=== PATIENT | female | born 1960 | race Caucasian/White ===

== ENCOUNTER 2016-08-02 19:19 | Emergency (ER) | payer OTHER ==
[2016-08-02 19:38] VITALS: BP 150/96
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
--- OUTSIDE RECORDS SUMMARY | 2016-08-02 20:23 | XMS REPORT | Continuity of Care Document ---
:1960 Author Organization [facility] ([facility]) Address [address] [place] [address] Phone [phone] Care Team Providers Name Role Phone Unavailable Primary Care Provider Unavailable Source Comments This disclosure is being made pursuant to the Care Everywhere program, applicable federal and state laws, and may not contain all informaitonavailable regarding this patient.[facility] ([facility]) Active Allergies and Adverse Reactions Not on File Current Medications Not on file Active Problems Problem Noted Date Lumbago 11/27/2001 Social History Tobacco Use Types Packs/Day Years Used Date Never Assessed Plan of Care Health Maintenance Due Date Last Done Comments HCV Screening 1960 Hepatitis B Vaccine (1 of 3 - Primary Series) 1960 Tdap Vaccine 1970 Lipid Disorder Screening 1977 MMR Vaccine 1977 Td Vaccine 1977 Cervical Cancer Screening 1989 Mammogram 1999 Colonoscopy 06/12/2009 Influenza Vaccine: Seasonal (#1) 12/28/2015 Results from Last 3 Months Not on file
== END 2016-08-02 21:58 | disposition home or self-care (01) ==
LOC: ER 19:19
DX: S80.02XA Contusion of left knee, initial encounter (principal); S80.01XA Contusion of right knee, initial encounter; W18.39XA Other fall on same level, initial encounter; Y92.410 Unspecified street and highway as the place of occurrence of the external cause; S80.211A Abrasion, right knee, initial encounter; E11.9 Type 2 diabetes mellitus without complications

== ENCOUNTER 2017-04-15 15:38 | Emergency (ER) | payer OTHER ==
[2017-04-15 16:00] VITALS: BP 142/87
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
[2017-04-15] MEDS ORDERED: KETOROLAC TROMETHAMINE 30 MG/ML VIAL IV ONE (16:20)
[2017-04-15] MEDS ORDERED: NORMAL SALINE 1,000 ML IV ONE (16:20)
[2017-04-15] MEDS ORDERED: PROMETHAZINE HCL 12.5 MG in DEXTROSE 5 % IN WATER 50 ML IV ONE ×2 (16:20)
[2017-04-15 16:37] LABS: Hematocrit 44.5 % (37.0-47.0); Hemoglobin 15.3 gm/dL (12.5-16.0); Mean Cell Volume 87.1 fl (78-100); Mean Corpuscular Hemoglobin 29.9 pg (27-31); Mean Corpuscular Hgb Conc 34.4 g/dl (32-36); Mean Platelet Volume 10.1 fl (6.0-9.5); Neutrophil # 5.9 K/mm3 (1.3-6.0); Platelet Count 257 K/mm3 (150-450); Red Blood Count 5.11 M/mm3 (4.2-5.4); Red Cell Distribution Width 12.4 % (11.5-14.0); White Blood Count 10.1 K/mm3 (4.0-10.5)
[2017-04-15 16:50] LABS: Urine Appearance Clear; Urine Bilirubin Negative (NEGATIVE); Urine Color Yellow; Urine Ketone Negative (NEGATIVE)
[2017-04-15 16:51] LABS: Albumin * 3.7 gm/dl (3.4-5.0); Anion Gap 19.2 mmol/L (6.8-13.8); BUN/Creatinine Ratio 9.6 (9.0-21.6); Bilirubin, Total 0.5 mg/dL (0.0-1.1); Ca. Corrected For Albumin 9.2 mg/dL (8.4-10.2); Calcium * 9.3 mg/dL (7.9-10.9); Carbon Dioxide 22.6 mmol/L (24-32.6); Potassium 3.8 mmol/L (3.4-4.6); Total Protein 7.3 gm/dL (6.2-8.2)
[2017-04-15 16:52] LABS: Urine Bacteria None Seen; Urine Blood Negative /ul (NEGATIVE); Urine Nitrite Negative (NEGATIVE); Urine Protein Negative (NEGATIVE); Urine RBC None Seen /hpf (0-5); Urine Specific Gravity 1.015 SP.GR. (1.005-1.010); Urine Urobilinogen Normal (NORMAL); Urine WBC 0-5 /hpf (0-5)
[2017-04-15] MEDS ORDERED: KETOROLAC TROMETHAMINE 30 MG/ML VIAL ONE (17:06)
== END 2017-04-15 17:55 | disposition home or self-care (01) ==
LOC: ER 15:38
DX: J06.9 Acute upper respiratory infection, unspecified (principal); R19.7 Diarrhea, unspecified; E11.9 Type 2 diabetes mellitus without complications

== ENCOUNTER 2018-02-08 06:52 | Inpatient (IN) ==
[~2018-02-08 06:52] MED LIST: BUPIVACAINE HCL/EPINEPHRINE 50 ML VIAL IJ PRN; LEVOFLOXACIN IN DEXTROSE 5 % 500 MG/100 ML BAG IV PRN
[2018-02-08] MEDS: RINGER'S SOLUTION,LACTATED 1,000 ML IV PRN ×3 (10:07→16:26)
--- NOTE | 2018-02-08 10:28 | ANES ---
Anesthesia Pre Procedure Eval Vitals/Labs: Last Vital Signs Temp 36.8 C 02/08/18 07:00 Pulse 79 02/08/18 07:00 Resp 17 02/08/18 07:00 BP 150/87 H 02/08/18 07:00 Pulse Ox 98 02/08/18 07:00 HOME MEDICATIONS Albuterol Sulfate [Proventil Hfa] 1 - 2 puff IH Q4H PRN 12/24/14 [Last Taken Unknown] Levetiracetam [Keppra] 750 mg PO BID 12/24/14 [Last Taken Unknown] Calcium Carbonate/Vitamin D3 [Calcium 600 + Vit D3 400 Tab] 1 ea PO TID [Last Taken Unknown] Topiramate [Topamax] 100 mg PO DAILY 01/13/16 [Last Taken Unknown] acetaminophen 325 mg capsule 650 mg PO Q4H PRN cap 12/14/17 [Last Taken Unknown ] dicyclomine 20 mg tablet 20 mg PO QID #120 tab 12/25/17 [Last Taken Unknown] metformin 1,000 mg tablet 1,000 mg PO BID #60 tab 01/17/18 [Last Taken Unknown] trazodone 50 mg tablet 50 mg PO HS PRN #30 tab 01/26/18 [Last Taken Unknown] glipizide 5 mg tablet 10 mg PO BID #60 tab 01/31/18 [Last Taken Unknown] doxepin 10 mg/mL oral concentrate 5 mg PO HS PRN ml 02/07/18 [Last Taken Unknown] Diazepam [Valium] 5 mg PO BID PRN 02/08/18 [Last Taken Unknown] Allergies/Adverse Reactions: Allergies Allergy/AdvReac Type Severity Reaction Status Date / Time latex Allergy Mild Hives Verified 02/08/18 08:58 amoxicillin trihydrate Allergy Unknown Verified 02/08/18 08:58 [From Augmentin] carbamazepine [From Tegretol] Allergy Unknown Verified 02/08/18 08:58 clonazepam [From Klonopin] Allergy Unknown Verified 02/08/18 08:58 codeine Allergy Unknown Verified 02/08/18 08:58 cortisone Allergy Unknown Verified 02/08/18 08:58 egg Allergy Unknown Verified 02/08/18 08:58 erythromycin base Allergy Unknown Verified 02/08/18 08:58 influenza virus vaccine ts Allergy Unknown Verified 02/08/18 08:58 [From Fluarix] lactose Allergy Unknown Verified 02/08/18 08:58 milk Allergy Unknown Verified 02/08/18 08:58 onion Allergy Unknown Verified 02/08/18 08:58 oxybutynin chloride Allergy Unknown Verified 02/08/18 08:58 [From Ditropan] penicillin G Allergy Unknown Verified 02/08/18 08:58 phenazopyridine HCl Allergy Unknown Verified 02/08/18 08:58 [From Pyridium] phenytoin sodium Allergy Unknown Verified 02/08/18 08:58 [From Dilantin] phenytoin sodium extended Allergy Unknown Verified 02/08/18 08:58 [From Dilantin] potassium clavulanate Allergy Unknown Verified 02/08/18 08:58 [From Augmentin] shellfish derived Allergy Unknown Verified 02/08/18 08:58 Sulfa (Sulfonamide Allergy Unknown Verified 02/08/18 08:58 Antibiotics) tiagabine HCl [From Gabitril] Allergy Unknown Verified 02/08/18 08:58 wheat Allergy Unknown Verified 02/08/18 08:58 yeast, dried [yeast] Allergy Unknown Verified 02/08/18 08:58 fluconazole [From Diflucan] AdvReac Mild Other Verified 02/08/18 08:58 ampicillin AdvReac Unknown Verified 02/08/18 08:58 black pepper AdvReac Unknown Verified 02/08/18 08:58 [place] Derivatives AdvReac Unknown Verified 02/08/18 08:58 feathers AdvReac Unknown Verified 02/08/18 08:58 fire ant AdvReac Unknown Verified 02/08/18 08:58 Fish Containing Products AdvReac Unknown Verified 02/08/18 08:58 grass pollen-perennial rye, AdvReac Unknown Verified 02/08/18 08:58 standar hornet venom AdvReac Unknown Verified 02/08/18 08:58 generic medications Allergy Unknown Uncoded 04/15/17 16:01 NUTS Allergy Unknown Uncoded 04/15/17 16:01 VANILLA Allergy Unknown Uncoded 04/15/17 16:01 - Planned Procedure Planned Procedure: Bilateral Mastectomy, Right Sentinal Lymph Node Bx Medication List Reviewed:: Yes Allergies Verified: Yes Medical History (Last Reviewed 02/08/18 @ 08:56 by Fely Mann RN) Bilateral shoulder pain Onset Date: Unknown Breast cancer Onset Date: ~12/2017 Allergic rhinitis Onset Date: 11/04/16 Arthritis Onset Date: Unknown Asthma, intermittent Onset Date: 11/15/17 Back pain Onset Date: Unknown Bilateral knee pain Onset Date: Unknown Bilateral shoulder pain Onset Date: 11/07/14 Bone spur of foot Onset Date: ~2003 Carpal tunnel syndrome Onset Date: Unknown Cerebral palsy Onset Date: Unknown Chronic sinusitis Onset Date: Unknown Diabetes mellitus Onset Date: 11/07/14 Heart murmur Onset Date: Unknown Hyperlipidemia Onset Date: Unknown Hypertension, essential, benign Onset Date: 06/12/15 Irritable bowel syndrome Onset Date: Unknown Knee pain, right Onset Date: Unknown Neck pain Onset Date: Unknown Osteopenia Onset Date: 12/10/15 Seizures Onset Date: 11/07/14 Tennis elbow Onset Date: Unknown Tinea versicolor Onset Date: 02/10/15 Tinnitus Onset Date: 11/04/16 Abdominal pain, vomiting, and diarrhea Onset Date: 11/15/17 Abrasion of face Onset Date: 05/14/15 Bronchitis Onset Date: Unknown Closed fracture nasal bone Onset Date: Unknown Ear itching Onset Date: 02/10/15 Fall Onset Date: Unknown Finger fracture Onset Date: Unknown Fracture of hand Onset Date: ~2007 Ganglion cyst Onset Date: 08/21/15 Head injury Onset Date: 05/14/15 Left wrist pain Onset Date: 05/14/15 Retinal detachment Onset Date: Unknown Right ankle pain Onset Date: 05/14/15 Right hand pain Onset Date: 05/14/15 Surgical History (Last Reviewed 02/08/18 @ 10:27 by Alvin Kingston CRNA) History of arthroplasty of right ankle Onset Date: ~1991 History of carpal tunnel release Onset Date: ~1989 History of cholecystectomy Onset Date: Unknown History of colonoscopy Onset Date: ~2009 History of foot surgery Onset Date: ~1967 History of hysterectomy Onset Date: ~1990 History of knee surgery Onset Date: ~1971 History of tonsillectomy Onset Date: Unknown Status post trigger finger release Onset Date: 01/27/16 Family History (Last Reviewed 02/08/18 @ 10:27 by Alvin Kingston CRNA) Other Adopted - Family Anesthesia History Family History:: no untoward family reactions to anesthesia - Airway/Neck/Teeth Within Normal Limits:: Yes Teeth Condition: Intact Denture Type: None Neck Exam: full range of motion, normal inspection Mallampatti Score: 2 Thyromental (T-M) distance: > 6 cm Mandibulo Hyoid distance: > 3 cm - Respiratory Respiratory: chest non-tender, lungs clear, normal breath sounds Smoking Status: Never smoker Sleep Apnea currently treated: No Sleep Apnea by current assessment: No - Cardiovascular Patient History - Cardiac/Respiratory: Asthma Heart Sounds: S1 & S2, Regular - Anesthesia Assessment and Plan ASA Class: PS, III Anesthesia Type Plan: General LMA Planned difficult intubation/equipment available: No
--- NOTE | 2018-02-08 15:25 | ANES ---
Post Anesthesia Discharge - Transfer of Care Transfer of Care handoff given to nurse: Yes - Discharge from PACU Discharge from PACU when meets criteria: Yes - Discharge to ASU Discharge to ASU-no complications/pt stable: Yes
[2018-02-08] MEDS ORDERED: ONDANSETRON HCL/PF 2 MG/ML VIAL IV PRN (16:03)
[2018-02-08] MEDS ORDERED: HYDROcodone/ACETAMINOPHEN 1 EACH TABLET PO PRN (16:03)
--- NOTE | 2018-02-08 16:11 | OR ---
Operative Report - Dictated Report Narrative: Date of Service: 02/08/18 Procedure: s/p bilateral simple mastectomy, with sentinal lymph node biopsy of left axilla Pre-procedure diagnosis: left breast invasive lobular carcinoma Post-procedure diagnosis: negative SLN biopsy Surgeon: Dr. Essie Rosario Anesthesia: General Indication for procedure: Cassie is a very pleasant 57-year-old female who presents with invasive lobular carcinoma of the left breast. She desires to have bilateral mastectomy, without reconstruction. She has cerebral palsy, does not have function of her right arm. Unfortunately, her left arm is the only arm which is functional. This is unfortunate, as her cancers on the left side as well. We would like to prevent lymphedema if at all possible, to maintain her current level of function and independence. Description of procedure: The patient was brought to the operating room and general anesthesia was induced. A timeout was completed verifying correct patient, procedure, site, positioning, prior to the procedure. The patient was prepped and draped in the usual sterile fashion. A skin incision was made on the left breast that encompassed the nipple areolar complex, and the previous biopsy scar and passed in a generally transverse direction across the breast. Initially started on the left breast as it is the associated site of cancer. Flaps were raised in an avascular plane between the subcutaneous tissue and breast tissue from the clavicle, the sternum medially, the anterior rectus sheath inferiorly, and the pectoralis muscle laterally. The sentinel lymph node biopsy was done on the left side, using the neoprobe, as I worked laterally on the mastectomy. The sentinel lymph node was identified. Prior to surgery the lymphoscintigraphy was reviewed. The node was removed and had a 10 second count of over 70 thousand. The ten second background count was 100. The lymph node was sent to pathology for frozen section we were later told it was negative. After completion of the mastectomy, the lateral border of the pectoralis major muscle the breast tissue was swung laterally and a lateral medical identified where breast tissue gave way to fat of axilla the lateral pedicle was incised and the specimen was removed. Prior to removal the breast was marked with short superior stitch and long lateral stitch. As a continued with the mastectomy, I took a small amount of additional tissue on the inferior margin. The patient had excess skin left over, which was removed and excised and placed in the specimen container. The additional tissue that was taken from the inferior margin to facilitate closure, and the additional skin were not marked. The breast cancer was in the posterior one third of the breast, during the initial removal of the breast, I took the specimen down to the chest wall on the muscle. Hemostasis was achieved. The wound was irrigated. A 15 [place] drain was placed. Julianne powder was placed in the surgery site. The wound was closed using an inverted running 3-0 vicryl suture. The skin was closed using an inverted running 4-0 Monocryl suture. Mastisol and Steri-Strips were applied. On the right breast a skin incision was made that encompassed the nipple areolar complex, and the previous biopsy scar and passed in a generally transverse direction across the breast. Initially started on the left breast is associated site of cancer. Flaps were raised in an avascular plane between the subcutaneous tissue and breast tissue from the clavicle. Currently, the sternum medially, the anterior rectus sheath inferiorly, and the border of the pectoralis muscle laterally. The lateral border of the pectoralis major muscle the breast tissue was swung laterally and a lateral medical identified where breast tissue gave way to fat of axilla the lateral pedicle was incised and the specimen was removed. Prior to removal the breast was marked with short superior stitch and long lateral stitch. The patient had excess skin left over, which was removed and excised and placed in the specimen container. Hemostasis was achieved. The wound was irrigated. A 15 [place] drain was placed. Julianne powder was placed in the surgery site. The wound was closed using an inverted running 3-0 vicryl suture. The skin was closed using an inverted running 4-0 Monocryl suture. Mastisol and Steri-Strips were applied. The patient tolerated the procedure well with no immediate complications. Complications: none Specimens to pathology: Left breast, right breast, sentinel lymph node Estimated blood loss: Less than 250 Disposition: She was admitted to the floor as an inpatient. She also has a history of cerebral palsy, and seizures. Her primary care provider was consulted, she will also need home health care at discharge.
[2018-02-08] MEDS: POTASSIUM CHLORIDE 20 MEQ in DEXTROSE 5%-0.5 NORMAL SALINE 990 ML IV SCH (16:58)
[2018-02-08] MEDS: KETOROLAC TROMETHAMINE 15 MG/ML VIAL IV PRN (22:45)
[2018-02-09] MEDS: HYDROmorphone HCL 1 MG/ML DISP.SYRIN IV PRN ×2 (01:54→14:47)
[2018-02-09] MEDS: POTASSIUM CHLORIDE 20 MEQ in DEXTROSE 5%-0.5 NORMAL SALINE 990 ML IV SCH ×2 (02:43→13:53)
[2018-02-09 05:31] LABS: Hematocrit 36.4 % (37.0-47.0); Hemoglobin 11.6 gm/dL (12.5-16.0); Mean Cell Volume 94.1 fl (78-100); Mean Corpuscular Hgb Conc 31.9 g/dl (32-36); Mean Platelet Volume 10.2 fl (8-12.5); Neutrophil % 58.4 % (42-75.0); Platelet Count 198 K/mm3 (150-450); Red Blood Count 3.87 M/mm3 (4.2-5.4); Red Cell Distribution Width 13.1 % (11.5-14.0); White Blood Count 10.3 K/mm3 (4.0-10.5)
[2018-02-09 05:41] LABS: Anion Gap 9.6 mmol/L (6.8-13.8); BUN/Creatinine Ratio 4.9 (9.0-21.6); Calcium * 8.1 mg/dL (7.9-10.9); Carbon Dioxide 25.7 mmol/L (24-32.6); Estimated Creat Clear 56.4; Potassium 3.3 mmol/L (3.4-4.6)
[2018-02-09] MEDS: KETOROLAC TROMETHAMINE 15 MG/ML VIAL IV PRN ×2 (07:10→21:50)
[2018-02-09] MEDS: LEVOFLOXACIN IN DEXTROSE 5 % 250 MG/50 ML BAG IV SCH (09:40)
[2018-02-09] MEDS ORDERED: ALBUTEROL SULFATE 2.5 MG/0.5 ML VIAL.NEB IH PRN (11:05)
[2018-02-09] MEDS ORDERED: DOXEPIN HCL 10 MG CAPSULE PO PRN (11:05)
[2018-02-09] MEDS ORDERED: traZODone HCL 50 MG TABLET PO PRN (11:05)
--- NOTE | 2018-02-09 11:14 | CONS ---
- Reason for consultation (8) S/P bilateral mastectomy Date of Service: 02/09/18 Reason for Consultation:: medical management HPI - General Narrative: Cassie Fung, is a 57-year-old white female, patient of Dr. Calle, who was referred to me by surgery for medical management. She has multiple medical problesms and her past medical history is significant for malignant neoplasm of her left breast, diabetes mellitus type 2, cerebral palsy with spasticity, seizure disorder, essential hypertension, hyperlipidemia, chronic fatigue syndrome. The patient underwent bilateral simple mastectomy with biopsy of sentinel node yesterday. She is currently without major complaint except for her postop pain with movement. Physical therapy was working with her on her transfers when I came into the room. - History of Present Illness Allergies/Adverse Reactions: Allergies latex Allergy (Mild, Verified 02/08/18 08:58) Hives amoxicillin trihydrate [From Augmentin] Allergy (Unknown, Verified 02/08/18 08: 58) carbamazepine [From Tegretol] Allergy (Unknown, Verified 02/08/18 08:58) clonazepam [From Klonopin] Allergy (Unknown, Verified 02/08/18 08:58) codeine Allergy (Unknown, Verified 02/08/18 08:58) cortisone Allergy (Unknown, Verified 02/08/18 08:58) egg Allergy (Unknown, Verified 02/08/18 08:58) erythromycin base Allergy (Unknown, Verified 02/08/18 08:58) influenza virus vaccine ts 2013-201 [From Fluarix] Allergy (Unknown, Verified 08:58) lactose Allergy (Unknown, Verified 02/08/18 08:58) milk Allergy (Unknown, Verified 02/08/18 08:58) onion Allergy (Unknown, Verified 02/08/18 08:58) oxybutynin chloride [From Ditropan] Allergy (Unknown, Verified 02/08/18 08:58) penicillin G Allergy (Unknown, Verified 02/08/18 08:58) phenazopyridine HCl [From Pyridium] Allergy (Unknown, Verified 02/08/18 08:58) phenytoin sodium [From Dilantin] Allergy (Unknown, Verified 02/08/18 08:58) phenytoin sodium extended [From Dilantin] Allergy (Unknown, Verified 02/08/18 08 :58) potassium clavulanate [From Augmentin] Allergy (Unknown, Verified 02/08/18 08:58 ) shellfish derived Allergy (Unknown, Verified 02/08/18 08:58) Sulfa (Sulfonamide Antibiotics) Allergy (Unknown, Verified 02/08/18 08:58) tiagabine HCl [From Gabitril] Allergy (Unknown, Verified 02/08/18 08:58) wheat Allergy (Unknown, Verified 02/08/18 08:58) yeast, dried [yeast] Allergy (Unknown, Verified 02/08/18 08:58) fluconazole [From Diflucan] Adverse Reaction (Mild, Verified 02/08/18 08:58) Other swelling and redness to her face ampicillin Adverse Reaction (Unknown, Verified 02/08/18 08:58) black pepper Adverse Reaction (Unknown, Verified 02/08/18 08:58) Humphreys And Derivatives Adverse Reaction (Unknown, Verified 02/08/18 08:58) feathers Adverse Reaction (Unknown, Verified 02/08/18 08:58) duck fire ant Adverse Reaction (Unknown, Verified 02/08/18 08:58) Fish Containing Products Adverse Reaction (Unknown, Verified 02/08/18 08:58) grass pollen-perennial rye, standar Adverse Reaction (Unknown, Verified 08:58) hornet venom Adverse Reaction (Unknown, Verified 02/08/18 08:58) generic medications Allergy (Unknown, Uncoded 04/15/17 16:01) NUTS Allergy (Unknown, Uncoded 04/15/17 16:01) VANILLA Allergy (Unknown, Uncoded 04/15/17 16:01) Home Medications: Home Medications Medication Instructions Recorded Last Taken Albuterol Sulfate [Proventil Hfa] 1 - 2 puff IH Q4H PRN 12/24/14 Unknown Levetiracetam [Keppra] 750 mg PO BID 12/24/14 Unknown Calcium Carbonate/Vitamin D3 1 ea PO TID 01/13/16 Unknown [Calcium 600 + Vit D3 400 Tab] Topiramate [Topamax] 100 mg PO DAILY 01/13/16 Unknown acetaminophen 325 mg capsule 650 mg PO Q4H PRN cap 12/14/17 Unknown dicyclomine 20 mg tablet 20 mg PO QID #120 tab 12/25/17 Unknown metformin 1,000 mg tablet 1,000 mg PO BID #60 tab 01/17/18 Unknown trazodone 50 mg tablet 50 mg PO HS PRN #30 tab 01/26/18 Unknown glipizide 5 mg tablet 10 mg PO BID #60 tab 01/31/18 Unknown doxepin 10 mg/mL oral concentrate 5 mg PO HS PRN ml 02/07/18 Unknown Diazepam [Valium] 5 mg PO BID PRN 02/08/18 Unknown Procedures Excision of Left Breast, Percutaneous Approach, Diagnostic (01/19/18) Release Left Hand Tendon, Open Approach (01/27/16) Medications - Medications Current Medications: Current Medications Hydromorphone HCl (Dilaudid) 1 mg IV Q1H PRN PRN Reason: Pain Stop: 03/10/18 16:03 Last Admin: 02/09/18 01:54 Dose: 1 mg Potassium Chloride 20 meq/ (Dextrose/Sodium Chloride) 1,000 mls @ 100 mls/hr IV .Q10H LORNA Stop: 03/10/18 17:01 Last Admin: 02/09/18 02:43 Dose: 100 mls/hr Levofloxacin/Dextrose (Levaquin) 250 mg in 50 mls @ 50 mls/hr IV Q24H LORNA; Protocol Stop: 03/11/18 09:01 Last Admin: 02/09/18 09:40 Dose: 50 mls/hr Ketorolac Tromethamine (Toradol) 15 mg IV Q6H PRN PRN Reason: Pain Stop: 02/13/18 17:01 Last Admin: 02/09/18 07:10 Dose: 15 mg Ondansetron HCl (Zofran) 4 mg IV Q6H PRN PRN Reason: Nausea And Vomiting Stop: 03/10/18 16:04 Last Admin: 02/08/18 16:52 Dose: 4 mg Review of Systems - Review of Systems Generalized/Overall Review: Absent: Chills, Fever Respiratory: Absent: Cough, Shortness of Breath, Orthopnea Cardiac: Present: Chest Pain - from postop. Absent: Edema, Palpitations Abdominal: Absent: Nausea, Vomiting Genitourinary: Absent: Urgency, Frequency Musculoskeletal: Absent: Joint Pain, Back Pain Physical Examination - Exam Vital Signs: Vital Signs - Last Taken Temp 36.2 C 02/09/18 02:45 Pulse 88 02/09/18 09:00 Resp 18 02/09/18 06:15 BP 145/75 H 02/09/18 06:15 Pulse Ox 100 02/09/18 06:15 O2 Oxygen Delivery Method Room Air Constitutional: Present: Alert, Oriented x3, Cooperative ENT Exam: Present: hearing grossly normal Eye Exam: bilateral eye: normal inspection, PERRL, EOMI Neck: Present: supple Respiratory: Present: decreased breath sounds, No rales, No wheezing Cardiovascular/Chest: Present: regular rate, rhythm, no JVD, no murmur Abdomen: Present: Normal bowel sounds, nontender, nondistended Extremity: Present: no pedal edema, no calf tenderness - Results and Findings: Narrative: We will reconcile her medications and will restart most of them. She will continue with physical therapy. I will follow up the patient on the floor with surgery. Lab/Microbiology results last 24 hrs: Abnormal/Pending Laboratory Last 24 HRS 02/09/18 02/09/18 05:30 05:30 RBC 3.87 L Hgb 11.6 L Hct 36.4 L MCHC 31.9 L Monocytes % 10.5 H Monocytes # 1.1 H Potassium 3.3 L BUN/Creatinine Ratio 4.9 L Random Glucose 229 H - Assessments/Findings (1) Cerebral palsy Problem: Chronic Qualifiers: (2) Diabetes mellitus type 2 in obese Problem: Chronic (3) Hyperlipidemia associated with type 2 diabetes mellitus Problem: Chronic (4) Hypertension Problem: Chronic Qualifiers: (5) Insomnia Problem: Chronic Qualifiers: (6) Intermittent asthma Problem: Chronic Qualifiers: (7) Seizures Problem: Inactive (8) S/P bilateral mastectomy Problem: Acute
[2018-02-09] MEDS: ACETAMINOPHEN 325 MG TABLET PO PRN (13:57)
--- NOTE | 2018-02-09 14:19 | PN ---
Subjective - Date and Time Seen Date: 02/09/18 Time: 14:20 Subjective Narrative: she is doing well. complains of some pain with urination. sore throat, surgery site pain and mild axillary discomfort. Overall, she is doing well. She seems to have some anxiety. Objective Objective Narrative: NAD non labored respirations no edema uses left arm surgery dressing intact, and covered - Review of Systems Generalized/Overall Review: Reports: Weakness EENTM: Reports: Other - sore throat Respiratory: Reports: No Symptoms Reported Cardiac: Reports: No Symptoms Reported Abdominal: Reports: No Symptoms Reported Genitourinary Symptoms: Reports: Urgency, Frequency, Hesitancy Musculoskeletal Complaints: Reports: Other - surgery site Neurological: Reports: No Symptoms Reported Skin: Reports: No Symptoms Reported Endocrine: Reports: No Symptoms Reported - Vitals Vitals: Last Vital Signs Temp 36.2 C 02/09/18 02:45 Pulse 88 02/09/18 09:00 Resp 18 02/09/18 06:15 BP 145/75 H 02/09/18 06:15 Pulse Ox 100 02/09/18 06:15 - Abnormal Lab Findings Abnormal Lab Findings: Abnormal Lab Results 02/09/18 02/09/18 Range/Units 05:30 05:30 RBC 3.87 L (4.2-5.4) M/mm3 Hgb 11.6 L (12.5-16.0) gm/dL Hct 36.4 L (37.0-47.0) % MCHC 31.9 L (32-36) g/dl Monocytes % 10.5 H (0.0-9) % Monocytes # 1.1 H (0.0-1.0) k/mm3 Potassium 3.3 L (3.4-4.6) mmol/L BUN/Creatinine Ratio 4.9 L (9.0-21.6) Random Glucose 229 H (70-110) mg/dL - Exam Constitutional: Present: Alert, Oriented x3 ENT Exam: Present: normal ENT inspection Neck: Present: supple Breasts: Present: Other - dressing intact Cardiovascular/Chest: Present: normal peripheral pulses Abdomen: Present: Normal bowel sounds, soft Skin Exam: Present: normal color Thoughts: Present: normal thought pattern Assessment/Plan - Problems/Diagnosis (1) Breast cancer Problem: Acute Qualifiers: Breast location: lower outer quadrant of breast Estrogen receptor status: unspecified Patient sex: female Laterality: left Qualified Code(s): C50.512 - Malignant neoplasm of lower-outer quadrant of left female breast (2) S/P bilateral mastectomy Problem: Acute (3) Cerebral palsy Problem: Chronic (4) Cerebral palsy Problem: Chronic Qualifiers: (5) Diabetes mellitus type 2 in obese Problem: Chronic (6) Hemiparesis Problem: Chronic Qualifiers: Hemiparesis etiology: non-cerebrovascular etiology Hemiparesis laterality: right dominant side Qualified Code(s): G81.91 - Hemiplegia, unspecified affecting right dominant side (7) Hyperlipidemia associated with type 2 diabetes mellitus Problem: Chronic (8) Hypertension Problem: Chronic Qualifiers: (9) IBS (irritable bowel syndrome) Problem: Chronic Qualifiers: Irritable bowel syndrome type: with both diarrhea and constipation Qualified Code(s): K58.2 - Mixed irritable bowel syndrome (10) Intermittent asthma Problem: Chronic Qualifiers: Plan - Plan Plan: wound care levaquin IM consult pain control PT/OT
[2018-02-09] MEDS: glipiZIDE 10 MG TABLET PO SCH (17:29)
[2018-02-09] MEDS: levETIRAcetam 500 MG TABLET PO SCH (20:12)
[2018-02-10] MEDS: POTASSIUM CHLORIDE 20 MEQ in DEXTROSE 5%-0.5 NORMAL SALINE 990 ML IV SCH ×3 (00:03→20:55)
[2018-02-10 05:58] LABS: Hematocrit 37.9 % (37.0-47.0); Hemoglobin 12.3 gm/dL (12.5-16.0); Mean Cell Volume 93.6 fl (78-100); Mean Corpuscular Hemoglobin 30.4 pg (27-31); Mean Corpuscular Hgb Conc 32.5 g/dl (32-36); Mean Platelet Volume 10.4 fl (8-12.5); Neutrophil # 4.8 K/mm3 (1.3-6.0); Neutrophil % 53.5 % (42-75.0); Platelet Count 205 K/mm3 (150-450); Red Blood Count 4.05 M/mm3 (4.2-5.4)
[2018-02-10] MEDS: TOPIRAMATE 50 MG TABLET PO SCH (09:37)
[2018-02-10] MEDS: glipiZIDE 10 MG TABLET PO SCH ×2 (09:37→18:29)
[2018-02-10] MEDS: levETIRAcetam 500 MG TABLET PO SCH ×2 (09:37→20:51)
[2018-02-10] MEDS: LEVOFLOXACIN IN DEXTROSE 5 % 250 MG/50 ML BAG IV SCH (09:38)
[2018-02-10] MEDS ORDERED: DOXEPIN PO PRN (11:03)
--- NOTE | 2018-02-10 11:10 | PN ---
Subjective - Date and Time Seen Date: 02/10/18 Time: 10:30 Subjective Narrative: Overall, patient is feeling better today. She is very anxious that she is not improving as quickly as she thought. She is concerned she is doing something wrong. She was evaluated by therapy, she is not ready to go home independently. She'll be staying over the weekend, and will be reevaluated on Monday for possible skilled care placement. She lives alone, and has cerebral palsy. Her urination has improved, and is back to her baseline. Objective - Review of Systems Generalized/Overall Review: Reports: Weakness EENTM: Reports: No Symptoms Reported Respiratory: Reports: No Symptoms Reported, Other - Pain from surgery Cardiac: Reports: No Symptoms Reported Abdominal: Reports: No Symptoms Reported Genitourinary Symptoms: Reports: Hesitancy - Improved Neurological: Reports: Other - Vitals Vitals: Last Vital Signs Temp 36.9 C 02/10/18 08:10 Pulse 99 02/10/18 10:00 Resp 16 02/10/18 08:10 BP 159/92 H 02/10/18 08:10 Pulse Ox 98 02/10/18 08:10 - Abnormal Lab Findings Abnormal Lab Findings: Abnormal Lab Results 02/10/18 Range/Units 05:40 RBC 4.05 L (4.2-5.4) M/mm3 Hgb 12.3 L (12.5-16.0) gm/dL Monocytes % 9.4 H (0.0-9) % Eosinophils % 4.0 H (0.0-3.0) % - Exam Constitutional: Present: Alert, Oriented x3, Cooperative Neck: Present: supple Breasts: Present: Other - Healing well, surgical site is clean, dry, intact, Steri-Strips in place Respiratory: Present: other - Normal CARMEN output Abdomen: Present: Normal bowel sounds /Rectal: Present: Exam deferred Extremity: Present: other - Cerebral palsy, right arm affected Skin Exam: Present: normal color Appearance: Present: appropriate appearance Eye contact: Present: cooperative Thoughts: Present: normal thought pattern Assessment/Plan Plan Narrative: We will continue with current care. Appreciate internal medicine assistance in her care We'll stop prophylactic Levaquin today. Will await placement Continue with physical therapy and occupational therapy Continue with pain management. SCDs Incentive spirometer Will start prophylactic Lovenox, as she is now far enough out from surgery, for an acceptable bleeding risk - Problems/Diagnosis (1) S/P bilateral mastectomy Problem: Acute (2) Cerebral palsy Problem: Chronic (3) Diabetes mellitus type 2 in obese Problem: Chronic (4) Hyperlipidemia associated with type 2 diabetes mellitus Problem: Chronic (5) IBS (irritable bowel syndrome) Problem: Chronic Qualifiers: Irritable bowel syndrome type: with both diarrhea and constipation Qualified Code(s): K58.2 - Mixed irritable bowel syndrome (6) Seizures Problem: Inactive
[2018-02-10] MEDS ORDERED: LEVOFLOXACIN IN DEXTROSE 5 % 250 MG/50 ML BAG IV SCH (11:11)
[2018-02-10] MEDS: KETOROLAC TROMETHAMINE 15 MG/ML VIAL IV PRN ×2 (11:31→19:48)
--- NOTE | 2018-02-10 14:06 | PN ---
Subjective - Date and Time Seen Date: 02/10/18 Time: 14:03 Subjective Narrative: Patient NAD. Afebrile. T max 37. Objective - Review of Systems Generalized/Overall Review: Denies: Chills, Fever Respiratory: Denies: Cough, Shortness of Breath Cardiac: Denies: Chest Pain, Edema, Palpitations Abdominal: Denies: Nausea, Vomiting Genitourinary Symptoms: Denies: Urgency, Frequency Musculoskeletal Complaints: Reports: Muscle Pain - Vitals Vitals: Last Vital Signs Temp 37.0 C 02/10/18 13:13 Pulse 97 02/10/18 13:13 Resp 18 02/10/18 13:13 BP 150/89 H 02/10/18 13:13 Pulse Ox 95 02/10/18 13:13 - Abnormal Lab Findings Abnormal Lab Findings: Abnormal Lab Results 02/10/18 Range/Units 05:40 RBC 4.05 L (4.2-5.4) M/mm3 Hgb 12.3 L (12.5-16.0) gm/dL Monocytes % 9.4 H (0.0-9) % Eosinophils % 4.0 H (0.0-3.0) % - Exam Constitutional: Present: Alert, Oriented x3, Cooperative ENT Exam: Present: hearing grossly normal Neck: Present: supple Cardiovascular/Chest: Present: regular rate, rhythm, no JVD, no murmur Abdomen: Present: Normal bowel sounds, soft, nontender, nondistended Extremity: Present: no pedal edema, no calf tenderness Assessment/Plan Plan Narrative: We will continue with present management. - Problems/Diagnosis (1) Cerebral palsy Problem: Chronic Qualifiers: (2) Diabetes mellitus type 2 in obese Problem: Chronic Narrative: HbA1c on 01/31/2018- 7.9%- on glipizide and metformin (3) Hyperlipidemia associated with type 2 diabetes mellitus Problem: Chronic (4) Hypertension Problem: Chronic Qualifiers: (5) Insomnia Problem: Chronic Qualifiers: (6) Intermittent asthma Problem: Chronic Qualifiers: (7) Seizures Problem: Inactive (8) S/P bilateral mastectomy Problem: Acute
[2018-02-11] MEDS: levETIRAcetam 500 MG TABLET PO SCH ×2 (08:13→20:15)
[2018-02-11] MEDS: glipiZIDE 10 MG TABLET PO SCH (08:14)
[2018-02-11] MEDS: TOPIRAMATE 50 MG TABLET PO SCH ×2 (08:14→20:56)
[2018-02-11] MEDS: KETOROLAC TROMETHAMINE 15 MG/ML VIAL IV PRN (08:14)
[2018-02-11] MEDS ORDERED: MAGNESIUM HYDROXIDE 30 ML UDC PO ONE (11:26)
[2018-02-11] MEDS: POTASSIUM CHLORIDE 20 MEQ in DEXTROSE 5%-0.5 NORMAL SALINE 990 ML IV SCH (13:24)
[2018-02-11] MEDS: ENOXAPARIN SODIUM 40 MG/0.4 ML SYRG SC SCH (13:30)
[2018-02-11] MEDS: DOCUSATE SODIUM 100 MG CAPSULE PO SCH ×2 (13:31→20:12)
--- NOTE | 2018-02-11 14:12 | PN ---
Subjective - Date and Time Seen Date: 02/11/18 Time: 14:05 Subjective Narrative: Afebrile. T max 37 . Main c/o is her allergic sinusitis Objective - Review of Systems Generalized/Overall Review: Denies: Chills, Fever EENTM: Reports: Nose Congestion Respiratory: Reports: Cough. Denies: Shortness of Breath, Wheezing Cardiac: Denies: Edema, Palpitations Abdominal: Denies: Nausea, Vomiting Genitourinary Symptoms: Denies: Urgency, Frequency Musculoskeletal Complaints: Reports: Muscle Pain - siginificantly improved - Vitals Vitals: Last Vital Signs Temp 36.6 C 02/11/18 09:00 Pulse 88 02/11/18 10:00 Resp 16 02/11/18 09:00 BP 149/91 H 02/11/18 09:00 Pulse Ox 99 02/11/18 09:00 - Exam Constitutional: Present: Alert, Oriented x3, Cooperative ENT Exam: Present: hearing grossly normal Neck: Present: supple Respiratory: Present: decreased breath sounds, No rales, No wheezing Cardiovascular/Chest: Present: regular rate, rhythm, no JVD, no murmur Abdomen: Present: Normal bowel sounds, soft, nontender, nondistended Extremity: Present: no pedal edema, no calf tenderness Assessment/Plan - Problems/Diagnosis (1) Allergic rhinitis Problem: Chronic Qualifiers: Allergic rhinitis trigger: unspecified Allergic rhinitis seasonality: unspecified Qualified Code(s): J30.9 - Allergic rhinitis, unspecified Narrative: will start Zyrtec 10 mg PO q daily. (2) S/P bilateral mastectomy Problem: Acute (3) Cerebral palsy Problem: Chronic Qualifiers: (4) Diabetes mellitus type 2 in obese Problem: Chronic Narrative: BS in e200's. will increase her glipizide to 12.5 mg PO BID. (5) Hyperlipidemia associated with type 2 diabetes mellitus Problem: Chronic (6) Hypertension Problem: Chronic Qualifiers: (7) Insomnia Problem: Chronic Qualifiers: (8) Intermittent asthma Problem: Chronic Qualifiers: (9) Seizures Problem: Inactive
[2018-02-11] MEDS: LORATADINE 10 MG TABLET PO SCH (14:45)
[2018-02-11] MEDS: GLIPIZIDE PO SCH ×2 (16:32)
[2018-02-11] MEDS ORDERED: glipiZIDE 10 MG TABLET PO SCH (17:00)
[2018-02-12] MEDS: ACETAMINOPHEN 325 MG TABLET PO PRN ×3 (01:16→16:58)
[2018-02-12] MEDS: POTASSIUM CHLORIDE 20 MEQ in DEXTROSE 5%-0.5 NORMAL SALINE 990 ML IV SCH (06:40)
[2018-02-12] MEDS: GLIPIZIDE PO SCH ×4 (06:45→16:59)
[2018-02-12] MEDS: levETIRAcetam 500 MG TABLET PO SCH (09:54)
[2018-02-12] MEDS: DOCUSATE SODIUM 100 MG CAPSULE PO SCH (09:54)
[2018-02-12] MEDS: TOPIRAMATE 50 MG TABLET PO SCH (09:54)
[2018-02-12] MEDS: ENOXAPARIN SODIUM 40 MG/0.4 ML SYRG SC SCH (09:56)
[2018-02-12] MEDS: LORATADINE 10 MG TABLET PO SCH (09:58)
--- NOTE | 2018-02-12 11:02 | PN ---
Subjective - Date and Time Seen Date: 02/12/18 Time: 10:59 Subjective Narrative: Patient NAD. Afebrile. Tmax 37.2. BS 151. Objective - Review of Systems Generalized/Overall Review: Denies: Chills, Fever Respiratory: Reports: Cough. Denies: Shortness of Breath Cardiac: Denies: Chest Pain, Edema, Palpitations Abdominal: Denies: Nausea, Vomiting Genitourinary Symptoms: Denies: Urgency, Frequency - Vitals Vitals: Last Vital Signs Temp 36.8 C 02/12/18 09:06 Pulse 83 02/12/18 09:06 Resp 18 02/12/18 09:06 BP 137/78 02/12/18 09:06 Pulse Ox 97 02/12/18 09:06 - Exam Constitutional: Present: Alert, Oriented x3, Cooperative ENT Exam: Present: hearing grossly normal Neck: Present: supple Respiratory: Present: decreased breath sounds, No rales, No wheezing Cardiovascular/Chest: Present: regular rate, rhythm, no JVD, no murmur Abdomen: Present: Normal bowel sounds, soft, nontender, nondistended Extremity: Present: no pedal edema, no calf tenderness Assessment/Plan Plan Narrative: had started Zyrtec for her cough due to allergic rhintis and increase her glipizide due to increase BS from her recent surgery. She will go back to her usual dose when it starts getting better and fartther away from her surgical stress. Continue with her other home medications. - Problems/Diagnosis (1) Allergic rhinitis Problem: Chronic Qualifiers: Allergic rhinitis trigger: unspecified Allergic rhinitis seasonality: unspecified Qualified Code(s): J30.9 - Allergic rhinitis, unspecified (2) S/P bilateral mastectomy Problem: Acute (3) Cerebral palsy Problem: Chronic Qualifiers: (4) Diabetes mellitus type 2 in obese Problem: Chronic (5) Hyperlipidemia associated with type 2 diabetes mellitus Problem: Chronic (6) Hypertension Problem: Chronic Qualifiers: (7) Insomnia Problem: Chronic Qualifiers: (8) Intermittent asthma Problem: Chronic Qualifiers: (9) Seizures Problem: Inactive
--- NOTE | 2018-02-12 15:36 | DS ---
(1) Breast cancer Problem: Acute Qualifiers: Breast location: lower outer quadrant of breast Estrogen receptor status: unspecified Patient sex: female Laterality: left Qualified Code(s): C50.512 - Malignant neoplasm of lower-outer quadrant of left female breast (2) S/P bilateral mastectomy Problem: Acute (3) Cerebral palsy Problem: Chronic Qualifiers: (4) Diabetes mellitus type 2 in obese Problem: Chronic (5) Hemiparesis Problem: Chronic Qualifiers: Hemiparesis etiology: non-cerebrovascular etiology Hemiparesis laterality: right dominant side Qualified Code(s): G81.91 - Hemiplegia, unspecified affecting right dominant side (6) Hyperlipidemia associated with type 2 diabetes mellitus Problem: Chronic (7) Hypertension Problem: Chronic Qualifiers: (8) IBS (irritable bowel syndrome) Problem: Chronic Qualifiers: Irritable bowel syndrome type: with both diarrhea and constipation Qualified Code(s): K58.2 - Mixed irritable bowel syndrome (9) Intermittent asthma Problem: Chronic Qualifiers: Description of Stay: Cassie is now doing well postoperatively. She is ready for discharge. She was reevaluated by therapy today, and they agree with discharge. She initially needed to stay over the weekends, due to difficulties with mobility, and difficulty getting out of bed, and ADLs. Procedures Performed: see notes below List Procedures: Status post bilateral simple mastectomy with left axillary node dissection Results and Findings: Lab Pending Results 02/08/18 14:31: Pathology Specimen Spec to path 02/09/18 05:30: Sodium 135, Plasma Sodium 137, Potassium 3.3 L, Chloride 103, Carbon Dioxide 25.7, Anion Gap 9.6, BUN 4, Creatinine 0.82, Est GFR (Non-Af Amer ) 76, BUN/Creatinine Ratio 4.9 L, Random Glucose 229 H, Calcium 8.1 02/09/18 05:30: WBC 10.3, RBC 3.87 L, Hgb 11.6 L, Hct 36.4 L, MCV 94.1, MCH 30.0 , MCHC 31.9 L, RDW 13.1, Plt Count 198, MPV 10.2, Immature Gran % (Auto) 0.30, Immature Gran # (Auto) 0.03, Neutrophils % 58.4, Lymphocytes % 28.9, Monocytes % 10.5 H, Eosinophils % 1.1, Basophils % 0.8, Nucleated RBC % 0.0, Neutrophils # 6.0, Lymphocytes # 2.97, Monocytes # 1.1 H, Eosinophils # 0.1, Absolute Basophils 0.1 02/10/18 05:40: WBC 9.0, RBC 4.05 L, Hgb 12.3 L, Hct 37.9, MCV 93.6, MCH 30.4, MCHC 32.5, RDW 13.0, Plt Count 205, MPV 10.4, Immature Gran % (Auto) 0.20, Immature Gran # (Auto) 0.02, Neutrophils % 53.5, Lymphocytes % 31.9, Monocytes % 9.4 H, Eosinophils % 4.0 H, Basophils % 1.0, Nucleated RBC % 0.0, Neutrophils # 4.8, Lymphocytes # 2.88, Monocytes # 0.9, Eosinophils # 0.4, Absolute Basophils 0.1 Discharge Location: Home Disposition: Home Health Service Home Health Agency: [facility] Home Health Condition: Stable Face to Face Encounter completed per [facility] Guidelines: Yes Discharge Activity: Activity as tolerated - if it hurts dont do it Discharge Diet: General/regular food Referrals: Radames Bess MD [Primary Care Provider] - Problem Oriented Discharge Instructions to Patient/Family: Exercises Following Breast Surgery, Total or Modified Radical Mastectomy Additional Patient Instructions (free text): [facility] Home Health new. Nursing, bath aide, PT/OT. Follow up will be scheduled by Dr. Alondra burton office based on output of drain. Empty drain twice a day. Call Dr. Rosario office with drain output daily. Prescriptions (Any new or edited meds): HYDROcodone/ACETAMINOPHEN [Hydrocodon-Acetaminophen 5-325] 2 each PO Q6H #30 tablet Complete Home Medications List: Complete Home Medication List: Albuterol Sulfate [Proventil Hfa] 1 - 2 puff IH Q4H PRN 12/24/14 Levetiracetam [Keppra] 750 mg PO BID 12/24/14 Calcium Carbonate/Vitamin D3 [Calcium 600-Vit D3 400 Tablet] 1 ea PO TID Topiramate [Topamax] 100 mg PO BID 01/13/16 acetaminophen 325 mg capsule 650 mg PO Q4H PRN cap 12/14/17 dicyclomine 20 mg tablet 20 mg PO QID #120 tab 12/25/17 metformin 1,000 mg tablet 1,000 mg PO BID #60 tab 01/17/18 trazodone 50 mg tablet 50 mg PO HS PRN #30 tab 01/26/18 glipizide 5 mg tablet 10 mg PO BID #60 tab 01/31/18 doxepin 10 mg/mL oral concentrate 5 mg PO HS PRN ml 02/07/18 Diazepam [Valium] 5 mg PO BID PRN 02/08/18 Acetaminophen [Tylenol] 650 mg PO Q4H PRN tablet 02/12/18 Albuterol Sulfate [Albuterol Sulfate 2.5 MG/0.5ML] 2.5 mg IH Q4H PRN vial.neb 02/12/18 HYDROcodone/ACETAMINOPHEN [Hydrocodon-Acetaminophen 5-325] 2 each PO Q6H #30 tablet 02/12/18 Loratadine [Claritin] 10 mg PO DAILY tablet 02/12/18 Topiramate [Topamax] 100 mg PO BID tablet 02/12/18 glipiZIDE [Glucotrol] 12.5 mg PO BIDAC tablet 02/12/18 glipiZIDE [Glucotrol] 12.5 mg PO BIDAC tablet 02/12/18 levETIRAcetam [Keppra] 750 mg PO BID tablet 02/12/18 metFORMIN HCL [Glucophage] 1,000 mg PO BID tablet 02/12/18 traZODone HCL [Desyrel] 50 mg PO HS PRN tablet 02/12/18
[2018-02-12 17:54] VITALS: BP 147/86
== END 2018-02-12 17:54 | disposition home health service (06) | DRG 580 ==
LOC: MS 06:52 → EDSTATUS 10:30
PROVIDERS: ADMIT Surgery; ATTEND Surgery
CPT/HCPCS: 36415; 78195; 80048; 85025; 88307; 88331; 88341; 88342; 97110; 97116; 97162; 97165; 97530; A9541; J2405